=== PATIENT | male | born 1970 | race Caucasian/White ===

== ENCOUNTER → 2017-12-12 | Outpatient (CLI) | payer SELFPAY ==
[~2017-12-12] MED LIST: CETI10TA17 PO; TAMS0.4C2 PO
--- NOTE | 2017-12-12 13:59 | Diagnostic Imaging Report ---
EXAMINATION: Supine abdomen at 1:54 p.m. INDICATION: Nephrolithiasis. COMPARISON: There are no prior studies available for comparison. FINDINGS: There is an 8.1 mm oval calcification overlying the mid portion of the right kidney. This finding may well be intrarenal. There is no other evidence for nephrolithiasis. However, there are three calcific densities low in the pelvis on the right. The largest of these measures approximately 5 mm. These may well represent phleboliths. If there is clinical concern regarding an obstruction of the right collecting system by a ureteral stone, however, then CT would be recommended for further evaluation. There is gas in both the large and small bowel in a nonspecific fashion. There is no evidence for a bowel obstruction. There is no mass, organomegaly, or pathological calcification evident. The osseous structures are intact. IMPRESSION: 1. There is an 8 mm calculus overlying the right kidney, and there are three calcific densities low in the pelvis on the right. Considerations and recommendations as above. 2. There is no acute abnormality of the abdomen. Dictated by: Dictated on workstation # [id number]
== END ==
LOC: RAD 13:22
PROVIDERS: ATTEND Urology
DX: N20.2 Calculus of kidney with calculus of ureter (principal)
CPT/HCPCS: 74018

== ENCOUNTER 2017-12-13 05:40 | Outpatient (CLI) | payer SELFPAY ==
[~2017-12-13] VITALS: Ht 182.9 cm; Wt 117.9 kg
[2017-12-13] MEDS ORDERED: CETI10TA17 PO (11:06)
[2017-12-13] MEDS ORDERED: TAMS0.4C2 PO (11:06)
== END 2017-12-13 11:59 ==
LOC: PREOP 05:40
PROVIDERS: ATTEND Urology
DX: Z01.818 Encounter for other preprocedural examination (principal)

== ENCOUNTER 2019-01-01 15:08 | Emergency (ER) | payer BC, OTHER ==
[~2019-01-01] VITALS: Ht 182.9 cm; Wt 117.9 kg
--- NOTE | 2019-01-01 15:41 | ED Abdominal Pain ---
General Chief Complaint: - Urinary Stated Complaint: LT ABD PAIN Nursing Triage Note: Has LLQ pain that started yesterday. Is currently rated at 8/10 and has taken naproxen for pain. Has hx of kidney stones and states this feels like the ones he had last year. He was told he had a 7mm stone on the left side on a previous scan. Sepsis Screen: No Definite Risk Source of Information: Patient Exam Limitations: No Limitations History of Present Illness Date Seen by Provider: Jan 01, 2019 Time Seen by Provider: 15:30 Initial Comments The patient is a pleasant 48-year-old male presents for evaluation of left flank pain wrapping around the left side of the abdomen. He reports that he has had kidney stones multiple times that this feels the same. He noted that his urine seems darker than usual. He denies fevers or chills, diarrhea, vomiting, penile or testicular pain, chest pain or shortness of breath, dizziness or syncope. He is alert and oriented 4, appears uncomfortable, but is in no distress. He states that he was previously told he had stones in each kidney. He denies any significant past medical or past surgical history. He states he has been taking naproxen at home with little relief and that his pain began yesterday. Timing/Duration: 24 Hours Severity/Quality: Moderate Location: LLQ, Flank (left) Activities at Onset: None Modifying Factors: Improves With Analgesics (naproxen mild relief) Associated Symptoms: Other (dark urine) Allergies and Home Medications Allergies Coded Allergies: No Known Drug Allergies (Unverified , 12/13/17) Home Medications Cetirizine HCl 10 Mg Tablet, 10 MG PO DAILY, (Reported) Tamsulosin HCl 0.4 Mg Cap.er.24h, 0.4 MG PO DAILY, (Reported) Patient Home Medication List Home Medication List Reviewed: Yes Review of Systems Review of Systems Constitutional: no symptoms reported EENTM: No Symptoms Reported Respiratory: No Symptoms Reported Cardiovascular: No Symptoms Reported Gastrointestinal: Abdominal Pain (LLQ/left lateral) Genitourinary: No Symptoms Reported Musculoskeletal: back pain (left flank) Skin: no symptoms reported Psychiatric/Neurological: No Symptoms Reported Endocrine: No Symptoms Reported Hematologic/Lymphatic: No Symptoms Reported All Other Systems Reviewed Negative Unless Noted: Yes Past Tkvelse-Vdcmkb-Qcsmaf Hx Past Med/Social Hx: Reviewed Nursing Past Med/Soc Hx Patient Social History Alcohol Use: Denies Use Recreational Drug Use: No Smoking Status: Never a Smoker 2nd Hand Smoke Exposure: No Recent Foreign Travel: No Contact w/Someone Who Travel: No Recent Infectious Disease Expo: No Recent Hopitalizations: No Physical Abuse: No Sexual Abuse: No Mistreated: No Fear: No Seasonal Allergies Seasonal Allergies: Yes Past Medical History Surgeries: Yes (left knee scope, ureteroscopy) Respiratory: No Cardiac: No Neurological: No Genitourinary: Yes Kidney Stones Gastrointestinal: Yes Gastroesophageal Reflux Musculoskeletal: No Endocrine: No HEENT: No Cancer: No Psychosocial: No Integumentary: No Blood Disorders: No Physical Exam Vital Signs Vital Signs - First Documented 01/01/19 15:16 Temp 98.5 Pulse 99 Resp 18 B/P (MAP) 166/109 (128) Pulse Ox 96 Capillary Refill : Less Than 3 Seconds Height/Weight/BMI Height: 6'0" Weight: 260lbs. 0.0oz. 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, no motor/sensory deficits, alert, normal mood/affect, oriented x 3 Skin: normal color, warm/dry Progress/Results/Core Measures Results/Orders Lab Results Laboratory Tests Test 01/01/19 15:23 01/01/19 15:30 Range/Units Urine Color DARK YELLOW Urine Clarity CLOUDY Urine pH 5.0 5-9 Urine Specific Nadeau >=1.030 1.016-1.022 Urine Protein 2+ H NEGATIVE Urine Glucose (UA) NEGATIVE NEGATIVE Urine Ketones NEGATIVE NEGATIVE Urine Nitrite NEGATIVE NEGATIVE Urine Bilirubin 1+ H NEGATIVE Urine Urobilinogen 0.2 NORMAL MG/DL Urine Leukocyte Esterase NEGATIVE NEGATIVE Urine RBC (Auto) 3+ H NEGATIVE Urine RBC TNTC H /HPF Urine WBC 0-2 /HPF Urine Squamous Epithelial Cells RARE /HPF Urine Crystals PRESENT H /LPF Urine Calcium Oxalate Crystals FEW H /LPF Urine Bacteria FEW H /HPF Urine Casts NONE /LPF Urine Mucus MANY /LPF Urine Culture Indicated NO White Blood Count 8.9 4.3-11.0 10^3/uL Red Blood Count 5.14 4.35-5.85 10^6/uL Hemoglobin 15.6 13.3-17.7 G/DL Hematocrit 46 40-54 % Mean Corpuscular Volume 90 80-99 FL Mean Corpuscular Hemoglobin 30 25-34 PG Mean Corpuscular Hemoglobin Concent 34 32-36 G/DL Red Cell Distribution Width 13.6 10.0-14.5 % Platelet Count 163 130-400 10^3/uL Mean Platelet Volume 9.9 7.4-10.4 FL Neutrophils (%) (Auto) 63 42-75 % Lymphocytes (%) (Auto) 28 12-44 % Monocytes (%) (Auto) 8 0-12 % Eosinophils (%) (Auto) 1 0-10 % Basophils (%) (Auto) 0 0-10 % Neutrophils # (Auto) 5.6 1.8-7.8 X 10^3 Lymphocytes # (Auto) 2.5 1.0-4.0 X 10^3 Monocytes # (Auto) 0.7 0.0-1.0 X 10^3 Eosinophils # (Auto) 0.1 0.0-0.3 10^3/uL Basophils # (Auto) 0.0 0.0-0.1 10^3/uL Sodium Level 140 135-145 MMOL/L Potassium Level 3.7 3.6-5.0 MMOL/L Chloride Level 101 98-107 MMOL/L Carbon Dioxide Level 25 21-32 MMOL/L Anion Gap 14 5-14 MMOL/L Blood Urea Nitrogen 17 7-18 MG/DL Creatinine 1.41 H 0.60-1.30 MG/DL Estimat Glomerular Filtration Rate 53 BUN/Creatinine Ratio 12 Glucose Level 129 H 70-105 MG/DL Calcium Level 9.5 8.5-10.1 MG/DL Corrected Calcium 9.2 8.5-10.1 MG/DL Total Bilirubin 0.3 0.1-1.0 MG/DL Aspartate Amino Transf (AST/SGOT) 32 5-34 U/L Alanine Aminotransferase (ALT/SGPT) 41 0-55 U/L Alkaline Phosphatase 112 40-136 U/L Total Protein 8.2 6.4-8.2 GM/DL Albumin 4.4 3.2-4.5 GM/DL Lipase 35 8-78 U/L My Orders Orders - VIVIAN HARRISON DO Comprehensive Metabolic Panel (01/01/19 15:34) Lipase (01/01/19 15:34) Ua Culture If Indicated (01/01/19 15:34) Ed Iv/Invasive Line Start (01/01/19 15:34) Cbc With Automated Diff (01/01/19 15:34) Ct Abdomen/Pelvis Wo (01/01/19 15:34) Ketorolac Injection (Toradol Injection) (01/01/19 15:45) Ns Iv 1000 Ml (Sodium Chloride 0.9%) (01/01/19 15:45) Medications Given in ED Current Medications Medications Dose Ordered Sig/Dominguez Route Start Time Stop Time Status Last Admin Dose Admin Ketorolac Tromethamine 30 mg ONCE ONCE IVP 01/01/19 15:45 01/01/19 15:46 DC 01/01/19 15:46 30 MG Vital Signs/I&O 01/01/19 15:16 Temp 98.5 Pulse 99 Resp 18 B/P (MAP) 166/109 (128) Pulse Ox 96 Blood Pressure Mean: 128 Progress Progress Note : Progress Note @1700 - Patient informed of lab and imaging results including the finding of a left ureteral obstructing kidney stone. The stone is 5 x 9 mm so may not pass spontaneously. The patient has a urologist at [facility] named Dr. Nehemias buitrago however he is unavailable until Saturday and there is no backup coverag e. [facility] and he would like to be transferred there. Case was discussed with the transfer line and Dr. Martin Shukla (urology) accepts the transfer. Diagnostic Imaging Diagonstic Imaging: CT Comments MED REC#: [id number] PT STATUS: REG ER : 1970 PHYSICIAN: VIVIAN HARRISON DO ADMIT DATE: 01/01/19/ER FS Draft Date of Exam:01/01/19 CT ABDOMEN/PELVIS WO PROCEDURE: CT abdomen and pelvis without contrast. TECHNIQUE: Multiple contiguous axial images were obtained through the abdomen and pelvis without the use of intravenous contrast. Auto Exposure Controls were utilized during the CT exam to meet ALARA standards for radiation dose reduction. INDICATION: Left-sided flank and lower abdominal pain x 1 day. History of renal stone. CORRELATION STUDY: None. FINDINGS: An approximately 5 x 8-9 mm in length stone is present in the proximal left ureter, located just distal to the ureteropelvic junction. Mild proximal left periureteric stranding. Slight asymmetric engorgement of the left kidney. There is a subtle, 14 mm regional area of lower attenuation in the interpolar inferior aspect of the left kidney. Right kidney contains a 7 mm stone in the central aspect. No hydronephrosis. Lung bases are clear. Heart size is normal. Unenhanced liver, gallbladder, spleen, pancreas and adrenal glands are unremarkable abdominal aorta is normal in contour. Gastrointestinal tract without obstruction or inflammation. Normal appendix contains probable multiple small appendicoliths. Urinary bladder is decompressed. Prostate gland is unremarkable. IMPRESSION: 1. Approximately 5 x 8-9 mm in length stone in the proximal left ureter results in early obstruction of left kidney. 2. Nonobstructing stone interpolar region of right kidney. 3. Subtle lower density region within the left kidney. This finding is nonspecific and may reflect perhaps an incompletely characterized cyst with other lesions not excluded. Consideration for followup postcontrast imaging after the nephrolithiasis has been addressed would be recommended. Dictated on workstation # [id number] Dict: 01/01/19 1607 Trans: 01/01/19 1619 [facility] [id number] Interpreted by: ROBISNON ONTIVEROS DO Electronically signed by: Departure Impression Primary Impression: Hydronephrosis with urinary obstruction due to ureteral calculus Additional Impression: Left flank pain Disposition: 02 XFER SHT-TRM HOSP Condition: Stable Transfer Time Spoke to Accepting Phy: 17:[address] Martin Shukla (urology) accepts the direct admission Transfer Time: 17:30 Transfer Facility: [facility] Method of Transfer: EMS Departure-Patient Inst. Referrals: SELF,AMIE LEWIS (PCP/Family) Primary Care Physician VIVIAN HARRISON DO Jan 01, 2019 15:41
[2019-01-01 15:44] LABS: HEMATOCRIT 46 % (40-54); HEMOGLOBIN 15.6 G/DL (13.3-17.7); MEAN CORPUSCULAR HEMOGLOBIN 30 PG (25-34); MEAN CORPUSCULAR HGB CONC 34 G/DL (32-36); MEAN CORPUSCULAR VOLUME 90 FL (80-99); MEAN PLATELET VOLUME 9.9 FL (7.4-10.4); PLATELET COUNT 163 10^3/uL (130-400); RED CELL DISTRIBUTION WIDTH 13.6 % (10.0-14.5); WHITE BLOOD COUNT 8.9 10^3/uL (4.3-11.0)
[2019-01-01 15:45] LABS: BASOPHILS % (AUTO) 0 % (0-10); EOSINOPHILS # (AUTO) 0.1 10^3/uL (0.0-0.3); EOSINOPHILS % (AUTO) 1 % (0-10); LYMPHOCYTES # (AUTO) 2.5 X 10^3 (1.0-4.0); LYMPHOCYTES % (AUTO) 28 % (12-44); MONOCYTES # (AUTO) 0.7 X 10^3 (0.0-1.0); MONOCYTES % (AUTO) 8 % (0-12); NEUTROPHILS # (AUTO) 5.6 X 10^3 (1.8-7.8); NEUTROPHILS % (AUTO) 63 % (42-75)
[2019-01-01] MEDS ORDERED: NS IV 1000 ML 1,000 ML IV SCH (15:45)
[2019-01-01] MEDS ORDERED: KETOROLAC 30 MG/ML VIAL IVP ONE (15:45)
[2019-01-01 16:00] LABS: CLARITY,URINE CLOUDY; COLOR,URINE DARK YELLOW
[2019-01-01 16:01] LABS: GLUCOSE, URINE (UA) NEGATIVE (NEGATIVE); KETONES,URINE NEGATIVE (NEGATIVE); NITRITE,URINE NEGATIVE (NEGATIVE); PROTEIN,URINE 2+ (NEGATIVE)
[2019-01-01 16:03] LABS: BACTERIA,URINE FEW /HPF; BILIRUBIN,URINE 1+ (NEGATIVE); CALCIUM OXALATE CRYSTALS,UR FEW /LPF; LEUKOCYTE ESTERASE ,URINE NEGATIVE (NEGATIVE); RBC,URINE TNTC /HPF; SQUAMOUS EPITHELIAL CELL,UR RARE /HPF; UROBILINOGEN,URINE 0.2 MG/DL (NORMAL); WBC,URINE 0-2 /HPF
--- NOTE | 2019-01-01 16:20 | Diagnostic Imaging Report ---
PROCEDURE: CT abdomen and pelvis without contrast. TECHNIQUE: Multiple contiguous axial images were obtained through the abdomen and pelvis without the use of intravenous contrast. Auto Exposure Controls were utilized during the CT exam to meet ALARA standards for radiation dose reduction. INDICATION: Left-sided flank and lower abdominal pain x 1 day. History of renal stone. CORRELATION STUDY: None. FINDINGS: An approximately 5 x 8-9 mm in length stone is present in the proximal left ureter, located just distal to the ureteropelvic junction. Mild proximal left periureteric stranding. Slight asymmetric engorgement of the left kidney. There is a subtle, 14 mm regional area of lower attenuation in the interpolar inferior aspect of the left kidney. Right kidney contains a 7 mm stone in the central aspect. No hydronephrosis. Lung bases are clear. Heart size is normal. Unenhanced liver, gallbladder, spleen, pancreas and adrenal glands are unremarkable abdominal aorta is normal in contour. Gastrointestinal tract without obstruction or inflammation. Normal appendix contains probable multiple small appendicoliths. Urinary bladder is decompressed. Prostate gland is unremarkable. IMPRESSION: 1. Approximately 5 x 8-9 mm in length stone in the proximal left ureter results in early obstruction of left kidney. 2. Nonobstructing stone interpolar region of right kidney. 3. Subtle lower density region within the left kidney. This finding is nonspecific and may reflect perhaps an incompletely characterized cyst with other lesions not excluded. Consideration for followup postcontrast imaging after the nephrolithiasis has been addressed would be recommended. Dictated by: Dictated on workstation # [id number]
[2019-01-01 17:00] LABS: CREATININE SERUM 1.41 MG/DL (0.60-1.30); POTASSIUM 3.7 MMOL/L (3.6-5.0)
[2019-01-01 17:01] LABS: BILIRUBIN,TOTAL 0.3 MG/DL (0.1-1.0); CALCIUM 9.5 MG/DL (8.5-10.1); TOTAL PROTEIN 8.2 GM/DL (6.4-8.2)
[2019-01-01 17:02] LABS: ALBUMIN 4.4 GM/DL (3.2-4.5)
[2019-01-01 17:33] VITALS: BP 141/92
--- NOTE | 2019-01-01 17:45 | NUR ---
Called dispatch to page out ambulance at this time.
== END 2019-01-01 18:05 | disposition short-term general hospital (02) ==
LOC: EDUNIT# 15:08 → ER FS 15:09
DX: N13.6 Pyonephrosis (principal); K21.9 Gastro-esophageal reflux disease without esophagitis; Z87.442 Personal history of urinary calculi
CPT/HCPCS: 36415; 74176; 80053; 81000; 83690; 85025

== ENCOUNTER 2020-07-11 17:25 | Emergency (ER) | payer BC, OTHER ==
[~2020-07-11] VITALS: Ht 182 cm; Wt 132.0 kg
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
[2020-07-11 17:39] VITALS: BP 136/91
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
== END 2020-07-11 18:20 | disposition home or self-care (01) ==
LOC: EDUNIT# 17:25 → ER FS 17:27
DX: S90.32XA Contusion of left foot, initial encounter (principal); V64.5XXA Driver of heavy transport vehicle injured in collision with heavy transport vehicle or bus in traffic accident, initial encounter
CPT/HCPCS: 73630